=== PATIENT | female | born 1945 | race Caucasian/White ===

== ENCOUNTER → 2017-01-05 | Day surgery (SDC) | payer MEDICARE, BC ==
[~2017-01-05] MED LIST: ACIDOPHILUS1 CA2 PO; ADVIL200 M3 PO; ASPIRIN81 M2 PO; BIOTIN 800 MCG1 EACH PO; BIOTIN2500 MCG; CALCIUM 600 + D1 TA1 PO; CALCIUM 600+D T1 TA1 PO; CLARITIN10 M3 PO; DICLOFENAC SODI50 MG PO; FISH OIL 10001000 MG PO; FLEXERIL10 M1 PO; FLEXERIL10 MG PO; KLONOPIN0.5 MG PO; LIPITOR PO; LIPITOR20 MG PO; LOPRESSOR PO; MULTI-DAY1 TAB PO; NATURAL VIT1000 UNIT PO; PAXIL PO; PAXIL10 MG PO; PROTONIX20 MG PO; SPIRONOLACTONE50 MG; SPIRONOLACTONE50 MG PO; SYNTHROID PO; VANCOCIN HCL250 M1 PO; VANCOMYCIN1.25 GM/21 PO; VIT D3 PO; VIT E PO; ZOCOR20 MG PO
--- NOTE | ~2017-01-05 | OR ---
Unit #: [id number] #: [id number] Patient: NEETU GORE [id number] [address] [place], [place] [address] [id number] O MR#: [id number] NAME: NEETU GORE. ROOM: Date of Procedure: 01/05/2017 Admission Date: 01/05/2017 Surgeon: Farooq Price M.D. : 1945 Attending Physician: Farooq Price M.D. Primary Care Physician: Robe Carmen D.O. OPERATIVE REPORT PREOPERATIVE DIAGNOSES Back pain, radiculopathy, degenerative disk disease. POSTOPERATIVE DIAGNOSES Back pain, radiculopathy, degenerative disk disease. PROCEDURE PERFORMED Lumbar epidural steroid injection with intravenous sedation and fluoroscopic guidance for needle localization. INDICATIONS FOR PROCEDURE The patient is a 71-year-old female with return of back and right greater than left hip and lower extremity pain due to multilevel nonsurgical degenerative disk disease. She had been treated intermittently in the past with Dr. Macias with an epidural steroids getting anywhere from 6 to 14 months of improvement with single injections. Last injection was about a year ago. The pain has been bad for the last 3 to 4 months in its typical distribution. Based on history, pathology, and symptomatology, we are going to proceed with a repeat epidural steroid injection. DESCRIPTION OF PROCEDURE The patient was placed in a seated position. Standard monitors were applied. 2 mg of Versed were given for sedation and anxiolysis, which were adequate. Vital signs remained stable. Sterile prep and drape then of lumbar area was performed. The skin at the L5-S1 level was localized with 1% lidocaine. An 18-gauge Avalaratead needle was then advanced via loss of resistance technique and fluoroscopic guidance in toward the epidural space. The patient did not complain of pain or paresthesia during needle advancement. After confirming proper positioning with fluoroscopy and radiographic contrast, 80 mg of Depo-Medrol and 4 mL of 0.125% bupivacaine were deposited. The patient tolerated the procedure otherwise well and was discharged to the recovery room in stable condition. Dictated by... Genevieve Hill/nasim TD: 01/05/2017 12:44 JOB #: [id number] Unit #: [id number] #: [id number] Patient: NEETU GORE OPERATIVE REPORT Page 1 of 1 X Farooq Price MD X PROCEDURE OPERATIVE NOTE
== END | disposition home or self-care (01) ==
LOC: CCSC 07:38
DX: M51.16 Intervertebral disc disorders with radiculopathy, lumbar region (principal); K21.9 Gastro-esophageal reflux disease without esophagitis; F32.9 Major depressive disorder, single episode, unspecified
CPT/HCPCS: J1040; J2250

== ENCOUNTER → 2017-01-19 | Day surgery (SDC) | payer MEDICARE, BC ==
--- NOTE | ~2017-01-19 | OR ---
Unit #: [id number] #: [id number] Patient: NEETU GORE [id number] [address] [address] [id number] O MR#: [id number] NAME: NEETU GORE ROOM: Date of Procedure: 01/19/2017 Admission Date: 01/19/2017 Surgeon: Farooq Price M.D. : 1945 Attending Physician: Farooq Price M.D. Primary Care Physician: Robe Carmen D.O. OPERATIVE REPORT PREOPERATIVE DIAGNOSES Degenerative lumbar disk disease with myelopathy, back pain, radiculopathy. POSTOPERATIVE DIAGNOSES Degenerative lumbar disk disease with myelopathy, back pain, radiculopathy. PROCEDURE PERFORMED Lumbar epidural steroid injection with intravenous sedation and fluoroscopic guidance for needle localization. INDICATIONS FOR PROCEDURE The patient is a 71-year-old female, who presented with back and right hip and lower extremity pain greater than left due to multilevel degenerative disk disease. She has been treated in the past with epidural steroids via Dr. Macias. Last injection was about a year ago. She had return of the symptoms. Repeat injection done 2 weeks ago resulted in improvement in all components of her pain. She is not yet down to the normal baseline that she is able to achieve, so we are going to proceed with a second injection today. DESCRIPTION OF PROCEDURE The patient was placed in the seated position. Standard monitors were applied. 2 mg of Versed were given for sedation and anxiolysis, which were adequate. Vital signs remained stable. Sterile prep and drape then of the lumbar area was performed. The skin then at the L4-L5 level was localized with 1% lidocaine. An 18-gauge I-DISPOtead needle was then advanced via loss of resistance technique and fluoroscopic guidance in toward the epidural space. After confirming proper positioning with fluoroscopy and radiographic contrast, 80 mg of Depo-Medrol and 4 mL of 0.125% bupivacaine were deposited. The patient tolerated the procedure otherwise well and was discharged to the recovery room in stable condition. Dictated by... Genevieve Hill/nasim TD: 01/19/2017 10:37 JOB #: [id number] Unit #: [id number] #: [id number] Patient: NEETU GORE S OPERATIVE REPORT Page 1 of 1 X Farooq Price MD X PROCEDURE OPERATIVE NOTE
== END | disposition home or self-care (01) ==
LOC: CCSC 08:31
DX: M51.06 Intervertebral disc disorders with myelopathy, lumbar region (principal); M51.16 Intervertebral disc disorders with radiculopathy, lumbar region; K21.9 Gastro-esophageal reflux disease without esophagitis; F32.9 Major depressive disorder, single episode, unspecified; Z79.899 Other long term (current) drug therapy
CPT/HCPCS: J1040; J2250